=== PATIENT | male | born 1985 | race Caucasian/White ===

== ENCOUNTER 2020-12-02 07:28 | Emergency (ER) | payer OTHER ==
[2020-12-02 08:04] LABS: BASOPHIL 0.6 % (0-2); EOSINOPHIL 0.9 % (0-5); HCT 46.6 % (42.0-52.0); LYMPHOCYTE 15.2 % (15-48); MCH 30.8 pg (25.0-31.0); MCHC 34.3 g/dL (32.0-36.0); MCV 89.6 fL (78.0-100.0); MONOCYTE 4.8 % (0-12); MPV 10.4 fL (6.0-9.5); NEUTROPHIL 77.7 % (41-80); NRBC 0; PLT 213 K/uL (150-400); RDW 12.6 % (11.5-14.0); WBC 9.5 K/uL (4.0-10.5)
[2020-12-02 08:08] LABS: BILIRUBIN NEGATIVE (NEGATIVE); BLOOD 3+ Ery/uL (NEGATIVE); CLARITY CLEAR (CLEAR); COLOR YELLOW (YELLOW); GLUCOSE (U) NORMAL (NORMAL); LEUKOCYTES NEGATIVE Leu/uL (NEGATIVE); NITRITE NEGATIVE (NEGATIVE); PROTEIN NEGATIVE (NEGATIVE); UROBILINOGEN 0.2 mg/dL (0.2-1.0); pH 6.5 (5.0-9.0)
[2020-12-02 08:12] LABS: SQUAMOUS EPITHELIAL CELLS RARE; URINARY RBC TNTC; URINARY WBC RARE
[2020-12-02 08:25] LABS: BUN/CREAT RATIO (CALC) 22.3 RATIO; CREATININE 1.12 mg/dL (0.67-1.17); POTASSIUM 4.6 mmol/L (3.5-5.1)
== END 2020-12-02 08:32 | disposition home or self-care (01) ==
LOC: FER 07:28
PROVIDERS: Emergency Medicine
DX: N20.0 Calculus of kidney (principal); Z87.442 Personal history of urinary calculi; Z88.0 Allergy status to penicillin
CPT/HCPCS: 36415; 80048; 81001; 85025; J1885